=== PATIENT | female | born 2000 | race Caucasian/White ===

== ENCOUNTER 2022-01-16 09:39 | Inpatient (IN) ==
[2022-01-16 12:47] LABS: RBC,Urine 395 /HPF (0-4); Squamous Epithelial Cell,Urine Few /HPF (0-10)
[2022-01-16 12:48] LABS: Bilirubin,Urine Small mg/dL (Negative); Blood, Urine Large mg/dL (Negative); Glucose,Urine (UA) Negative (Negative); Ketones,Urine Negative (Negative); Nitrite,Urine Negative (Negative); Protein,Urine Negative (Negative); Urine Appearance Clear (Clear); Urine Color Amber (Yellow); Urine Specific Gravity 1.015 (1.001-1.035); Urine pH 6.5 (4.5-8.0)
[2022-01-16] MEDS ORDERED: SODIUM CHLORIDE 0.9% 1,000 ML IV STA (12:51)
[2022-01-16] MEDS ORDERED: ONDANSETRON 4 MG/2 ML VIAL IV STA ×2 (12:52→14:57)
[2022-01-16 12:54] LABS: Basophils % 0.5 % (0.0-0.8); Eosinophils % 0.9 % (0.00-10.9); Immature Granulocytes % 0.2 %; Immature Granulocytes Absolute 0.01 #; Lymphocytes # 1.7 10*3/uL (1.4-4.0); Lymphocytes % 40.4 % (21.3-54.2); Mean Corpuscular HGB Conc 32.5 GM/DL (32-36); Mean Corpuscular Volume 84.6 FL (87-102); Mean Platelet Volume 11.4 FL (9.6-12.0); Monocytes # 0.4 10*3/uL (0.11-0.8); Monocytes % 8.5 % (1.7-12.7); Neutrophils % 49.5 % (38.7-73.9); Platelet Count 221 T/CUMM (130-400); Red Blood Count 4.73 MC/CUMM (3.8-5.5); White Blood Count 4.2 T/CUMM (4-12)
[2022-01-16 13:15] LABS: Bilirubin,Total 3.1 MG/DL (0.20-1.00); Calcium 9.7 MG/DL (8.5-10.1); Osmolality,Calculated 275.4 MOS/KG (273-304); Total Protein 8.3 G/DL (6.4-8.2)
[2022-01-16] MEDS ORDERED: MORPHINE 10 MG/1 ML VIAL IV STA (14:57)
[2022-01-16] MEDS ORDERED: MORPHINE 2 MG/1 ML SYRINGE ONE (15:06)
[2022-01-16 15:18] LABS: Thyroid Stimulating Hormone 5.51 uIU/ml (0.358-3.74)
[2022-01-16] MEDS ORDERED: ALBUTEROL/IPRATROPIUM 3 ML NEB RESP TX PRN (15:22)
[2022-01-16] MEDS ORDERED: HYDROmorphone 1 MG/1 ML SYRINGE IV PRN ×2 (15:22)
[2022-01-16] MEDS ORDERED: ACETAMINOPHEN 325 MG TABLET PO PRN (15:22)
[2022-01-16] MEDS ORDERED: BISACODYL 5 MG TABLET PO PRN (15:22)
[2022-01-16] MEDS: PIPERACILLIN/TAZOBACTAM 3,375 MG in SODIUM CHLORIDE 0.9% 100 ML IV SCH ×2 (16:25→23:02)
[2022-01-16] MEDS: LACTATED RINGERS 1,000 ML IV SCH ×2 (17:00→23:06)
[2022-01-16] MEDS ORDERED: POLYETHYLENE GLYCOL POWDER 17 GM PACK PO SCH (17:00)
[2022-01-17] MEDS: LACTATED RINGERS 1,000 ML IV SCH ×3 (02:56→21:06)
[2022-01-17] MEDS: ONDANSETRON 4 MG/2 ML VIAL IV PRN ×2 (04:05→22:58)
[2022-01-17 05:14] LABS: Basophils % 0.8 % (0.0-0.8); Eosinophils # 0.1 10*3/uL (0.0-0.87); Hematocrit 35.8 VOL% (35.7-47.0); Hemoglobin 11.5 GM/DL (12.0-16.0); Immature Granulocytes % 0.3 %; Immature Granulocytes Absolute 0.01 #; Lymphocytes % 49.8 % (21.3-54.2); Mean Corpuscular HGB Conc 32.1 GM/DL (32-36); Mean Corpuscular Volume 86.3 FL (87-102); Mean Platelet Volume 11.8 FL (9.6-12.0); Monocytes # 0.3 10*3/uL (0.11-0.8); Monocytes % 7.8 % (1.7-12.7); Neutrophils % 39.3 % (38.7-73.9); Platelet Count 158 T/CUMM (130-400); Red Blood Count 4.15 MC/CUMM (3.8-5.5); Red Cell Distribution Width 13.2 % (9.3-17.3)
[2022-01-17 05:27] LABS: PT Patient Result 10.9 SECS (10.5-12.0)
[2022-01-17 05:35] LABS: Platelet Estimate Adequate
[2022-01-17 05:45] LABS: Albumin 3.2 G/DL (3.4-5.0); Bilirubin,Total 3.3 MG/DL (0.20-1.00); Calcium 8.9 MG/DL (8.5-10.1); Osmolality,Calculated 276.4 MOS/KG (273-304); Potassium 4.1 MMOL/L (3.5-5.1); Total Protein 6.8 G/DL (6.4-8.2)
[2022-01-17] MEDS: LEVOTHYROXINE 112 MCG TABLET PO SCH (06:27)
[2022-01-17] MEDS: PIPERACILLIN/TAZOBACTAM 3,375 MG in SODIUM CHLORIDE 0.9% 100 ML IV SCH ×3 (09:09→23:17)
[2022-01-17] MEDS ORDERED: INDOMETHACIN SUPP 50 MG SUPP RECTAL ONE (10:12)
[2022-01-17] MEDS: KETOROLAC 30 MG/1 ML VIAL IV PRN ×2 (10:14→23:22)
[2022-01-17] MEDS ORDERED: ROCURONIUM 50 MG/5 ML VIAL IV ONE (10:22)
[2022-01-17] MEDS ORDERED: LIDOCAINE 2% 5 ML VIAL ONE (10:22)
[2022-01-17] MEDS ORDERED: fentaNYL 100 MCG/2 ML VIAL ONE (10:22)
[2022-01-17] MEDS ORDERED: propofoL 200 MG/20 ML VIAL IV ONE ×2 (10:22→11:36)
[2022-01-17] MEDS ORDERED: MIDAZOLAM 2 MG/2 ML VIAL ONE (10:23)
[2022-01-17] MEDS ORDERED: ONDANSETRON 4 MG/2 ML VIAL ONE (11:36)
[2022-01-17] MEDS ORDERED: DEXAMETHASONE 4 MG/1 ML VIAL ONE (11:36)
[2022-01-17] MEDS ORDERED: SUGAMMADEX 200 MG/2 ML VIAL IV ONE (11:36)
[2022-01-17] MEDS ORDERED: SEVOFLURANE 1 UNIT/15 MINUTE INH ONE (11:36)
[2022-01-17] MEDS: PANTOPRAZOLE 40 MG TABLET PO SCH (12:06)
[2022-01-18 04:54] LABS: Basophils % 0.3 % (0.0-0.8); Eosinophils % 0.2 % (0.00-10.9); Hematocrit 34.7 VOL% (35.7-47.0); Hemoglobin 11.4 GM/DL (12.0-16.0); Immature Granulocytes % 0.2 %; Immature Granulocytes Absolute 0.01 #; Lymphocytes # 1.9 10*3/uL (1.4-4.0); Lymphocytes % 33.9 % (21.3-54.2); Mean Corpuscular HGB Conc 32.9 GM/DL (32-36); Mean Platelet Volume 12.1 FL (9.6-12.0); Monocytes # 0.4 10*3/uL (0.11-0.8); Monocytes % 7.2 % (1.7-12.7); Neutrophils % 58.2 % (38.7-73.9); Platelet Count 148 T/CUMM (130-400); Red Blood Count 4.08 MC/CUMM (3.8-5.5); White Blood Count 5.7 T/CUMM (4-12)
[2022-01-18] MEDS: LACTATED RINGERS 1,000 ML IV SCH ×4 (05:09→17:50)
[2022-01-18 05:13] LABS: Albumin 3.2 G/DL (3.4-5.0); Calcium 8.9 MG/DL (8.5-10.1); Osmolality,Calculated 275.4 MOS/KG (273-304); Potassium 3.7 MMOL/L (3.5-5.1); Total Protein 6.5 G/DL (6.4-8.2)
[2022-01-18] MEDS: LEVOTHYROXINE 112 MCG TABLET PO SCH (07:49)
[2022-01-18] MEDS ORDERED: LIDOCAINE 1%/EPI INJ 20 ML VIAL ONE (07:51)
[2022-01-18] MEDS ORDERED: TISSUE ADHESIVE 1 EACH APPLICATOR TOP ONE ×2 (07:51→09:23)
[2022-01-18] MEDS ORDERED: BUPIVACAINE MPF 0.25% 10 ML VIAL ONE (07:51)
[2022-01-18] MEDS ORDERED: ROCURONIUM 50 MG/5 ML VIAL IV ONE (08:02)
[2022-01-18] MEDS ORDERED: ONDANSETRON 4 MG/2 ML VIAL ONE (08:02)
[2022-01-18] MEDS ORDERED: DEXAMETHASONE 4 MG/1 ML VIAL ONE (08:02)
[2022-01-18] MEDS ORDERED: LIDOCAINE 2% 5 ML VIAL ONE (08:02)
[2022-01-18] MEDS ORDERED: MIDAZOLAM 2 MG/2 ML VIAL ONE (08:02)
[2022-01-18] MEDS ORDERED: propofoL 200 MG/20 ML VIAL IV ONE (08:02)
[2022-01-18] MEDS ORDERED: fentaNYL 100 MCG/2 ML VIAL ONE (08:02)
[2022-01-18] MEDS: PANTOPRAZOLE 40 MG TABLET PO SCH (09:02)
[2022-01-18] MEDS ORDERED: SUGAMMADEX 200 MG/2 ML VIAL IV ONE (09:06)
[2022-01-18] MEDS ORDERED: SEVOFLURANE 1 UNIT/15 MINUTE INH ONE (09:16)
[2022-01-18] MEDS: ONDANSETRON 4 MG/2 ML VIAL IV PRN (09:46)
[2022-01-18] MEDS: PIPERACILLIN/TAZOBACTAM 3,375 MG in SODIUM CHLORIDE 0.9% 100 ML IV SCH ×2 (12:45→19:55)
[2022-01-18] MEDS: KETOROLAC 30 MG/1 ML VIAL IV PRN (19:56)
[2022-01-19] MEDS: LACTATED RINGERS 1,000 ML IV SCH ×2 (00:48→08:51)
[2022-01-19] MEDS: PIPERACILLIN/TAZOBACTAM 3,375 MG in SODIUM CHLORIDE 0.9% 100 ML IV SCH (03:48)
[2022-01-19] MEDS: LEVOTHYROXINE 112 MCG TABLET PO SCH (05:57)
[2022-01-19 08:27] VITALS: BP 126/78
[2022-01-19] MEDS: PANTOPRAZOLE 40 MG TABLET PO SCH (08:42)
== END 2022-01-19 12:34 | disposition home or self-care (01) | DRG 263 ==
LOC: N.ED 09:39 → N.EDINP 15:22 → N.3E 16:32
PROVIDERS: ADMIT Surgery; ATTEND Surgery
PROC: ERCPWSP (ICD-10-PCS; 2022-01-17 07:35)
PROC: LAPCHOL (2022-01-18 08:20)